=== PATIENT | female | born 1940 | race Caucasian/White ===

== ENCOUNTER 2022-06-23 23:46 | Emergency (ER) | payer MEDICARE, SELFPAY ==
[2022-06-23 23:53] VITALS: BP 179/85; PULSE 62; RESP 17; TEMP 36.5; O2SAT 98; BMI 37.1
--- NOTE | 2022-06-24 00:06 | DI.RAD.S_ITS ---
PROCEDURE: XR FOREARM LT 2V INDICATIONS: fall on thinners TECHNIQUE: 2 views of the forearm were acquired. COMPARISON: None. FINDINGS: Bones: No fractures or dislocations. No suspicious bony lesions. Soft tissues: No suspicious soft tissue calcifications or masses. IMPRESSION: 1. No fracture or dislocation. There Dictated by: Darius Contreras M.D. on 06/24/2022 at 1:32 Approved by: Darius Contreras M.D. on 06/24/2022 at 1:32
--- NOTE | 2022-06-24 00:06 | DI.CT.S_ITS ---
PROCEDURE: CT HEAD/BRAIN WO CON INDICATIONS: fall on thinners TECHNIQUE: Noncontrast 4.5 mm thick angled axial sections acquired from the foramen magnum to the vertex, with coronal and sagittal reformats. For radiation dose reduction, the following was used: automated exposure control, adjustment of mA and/or kV according to patient size. COMPARISON: None. FINDINGS: Image quality: Excellent. CSF spaces: Basal cisterns are patent. No extra-axial fluid collections. There is mild cerebral volume loss, with resultant ventricular and sulcal prominence. Brain: No intracranial hemorrhage, mass, or mass effect. There are subcortical, periventricular and deep white matter hypodensities consistent with mild chronic small vessel ischemic changes. The mendoza-white matter junction appears preserved. There is intracranial internal carotid artery atherosclerosis. Skull and face: Calvarium and visualized facial bones appear intact, without suspicious lesions. Sinuses: Visualized sinuses and mastoids are clear. IMPRESSION: 1. No acute intracranial abnormality. Dictated by: Darius Contreras M.D. on 06/24/2022 at 1:40 Approved by: Darius Contreras M.D. on 06/24/2022 at 1:40
--- NOTE | 2022-06-24 00:09 | DI.CT.S_ITS ---
PROCEDURE: CT CERVICAL SPINE WO CON INDICATIONS: hit head TECHNIQUE: Noncontrast 3 mm thick sections acquired from the skull base to the T4 level. Sagittal and coronal reformats were then constructed. For radiation dose reduction, the following was used: automated exposure control, adjustment of mA and/or kV according to patient size. COMPARISON: None. FINDINGS: Image quality: There is motion artifact limiting evaluation. Bones: No fractures or subluxation. There is multilevel degenerative disc disease and facet joint arthropathy. Visualized superior ribs are intact. Soft tissues: Prevertebral soft tissues are normal in thickness. No paravertebral hematomas. No apical pneumothoraces. IMPRESSION: 1. No acute fracture or subluxation. Dictated by: Darius Contreras M.D. on 06/24/2022 at 1:41 Approved by: Darius Contreras M.D. on 06/24/2022 at 1:42
--- NOTE | 2022-06-24 00:47 | ED.FALL ---
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 Patient states that she thinks she got tangled and fell out of bed. She hit the back of her head and states there is a very tiny abrasion that continues to ooze. It was still oozing after 12 hours so she presented to the emergency department for evaluation. She denies headache, she states she has some muscular neck pain but denies any midline neck pain. Patient states range of motion is normal. Denies any bony tenderness. No chest pain or shortness of breath. No GI or urinary symptoms. No new numbness, tingling or weakness. Patient states she is rheumatoid arthritis so she often has muscle aches and her back is often stiff. She feels mildly more sore but not significantly so. Patient states she would not have come if it were not for the bleeding on her scalp. She denies any loss of consciousness. No nausea or vomiting. Patient is currently visiting the area with her daughter and lives in [facility]. Related Data Allergies Allergy/AdvReac Type Severity Reaction Status Date / Time No Known Drug Allergies Allergy Verified 06/24/22 00:01 Review of Systems Review of Systems ROS Unobtainable: All systems reviewed & are unremarkable except as noted in HPI and below Patient History Social History Smoking Status: Never smoker Smoking Status: Never smoker alcohol intake frequency: 0-2 drinks per day Substance Use Type: does not use Exam Narrative Exam Narrative: GEN: Patient appears in mild distress. HEAD: Patient has a quarter-sized area of abrasion with pin-point area of with no laceration or obvious puncture, no raccoon/Garzon sign. NECK: Nontender, painless range of motion, trachea midline Negative Nexus criteria, there is no midline tenderness, distracting injury, altered mental status, neuro deficit, recent EtOH. EYES: PERRLA, EOMI ENT: External inspection normal, trachea is midline, TM's are normal no hemotypanum, Nares are clear, no septal hematoma, no dental or oral injury, airway is normal and with normal occlusion, No bony tenderness RESP: Chest is nontender and has symmetric movement, no ecchymosis, breath sounds are normal no crackles, wheezes or rales CVS: Heart sounds are normal, no murmur noted, No JVD. ABG/GI: Nontender, soft, normal bowel sounds, no distention, no organomegaly, pelvic rock is negative NEURO: Oriented AOx3, neuro is grossly intact, sensation and motor is normal all 4 extremities moving, cranial nerves II through XII are intact, GCS is 15 PSYCH: Normal mood and affect SKIN: Patient has contusion on the left forearm over the mid shaft ulna, no bony tenderness, full range of motion. 2+ radial pulse. Warm and dry, no crepitus and without decubitus BACK: No CVA tenderness, no vertebral tenderness, no step-off's, no crepitus EXT: Atraumatic, hips are nontender, normal range of motion of extremities with normal tendon exam, 2+ pulses in all four extremities. 5/5 muscle strength. Initial Vital Signs Initial Vital Signs: Vital Signs Temperature 97.7 F 06/23/22 23:53 Pulse Rate 62 06/23/22 23:53 Respiratory Rate 17 06/23/22 23:53 Blood Pressure 179/85 H 06/23/22 23:53 Pulse Oximetry 98 06/23/22 23:53 Oxygen Delivery Method 06/23/22 23:53 Course Orders Ordered: ED Orders 06/24/22 00:06 CT head/brain wo con Stat XR forearm LT 2V Stat 06/24/22 00:09 CT cervical spine wo con Stat Vital Signs Vital signs: Vital Signs - 8 hr 06/23/22 23:53 06/24/22 02:11 Temperature 97.7 F Pulse Rate 62 58 L Respiratory Rate 17 18 Blood Pressure 179/85 H 150/98 H Pulse Oximetry 98 94 Oxygen Delivery Method Room Air Room Air MDM - Fall Imaging Data CT scan - head: Radiologist's Impression: Close Cervical Spine CT (Signed) Darius Contreras - 06/24/[address] (Signed) Darius Contreras - 06/24/22 Forearm X-Ray (Signed) Darius Contreras - 06/24/[address] [address] [address] Scan Report Signed Patient: SHANE CARNES MR#: [id number] : 1940 Acct:[id number] Age/Sex: 82 / F Date of Service: 06/24/22 Loc: ED Accession Number: [id number] ?? Procedure: CT head/brain wo con Ordering Provider: Danya Meyer D.O. PROCEDURE:? CT HEAD/BRAIN WO CON ? INDICATIONS:? fall on thinners ? TECHNIQUE:? Noncontrast 4.5 mm thick angled axial sections acquired from the foramen magnum to the vertex, with coronal and sagittal reformats.? For radiation dose reduction, the following was used:? automated exposure control, adjustment of mA and/or kV according to patient size.? ? COMPARISON:? None. ? FINDINGS:? Image quality:? Excellent.? ? CSF spaces:? Basal cisterns are patent.? No extra-axial fluid collections.? There is mild cerebral volume loss, with resultant ventricular and sulcal prominence.? ? Brain:? No intracranial hemorrhage, mass, or mass effect.? There are subcortical, periventricular and deep white matter hypodensities consistent with mild chronic small vessel ischemic changes.? The mendoza-white matter junction appears preserved.? There is intracranial internal carotid artery atherosclerosis.? ? Skull and face:? Calvarium and visualized facial bones appear intact, without suspicious lesions.? ? Sinuses:? Visualized sinuses and mastoids are clear.? ? IMPRESSION:? ? 1. No acute intracranial abnormality.? ? Dictated by: Darius Contreras M.D. on 06/24/2022 at 1:40 ? ? Approved by: Darius Contreras M.D. on 06/24/2022 at 1:40?? CT - cervical spine: Radiologist's Impression: Close Cervical Spine CT (Signed) Darius Contreras - 06/24/[address] (Signed) Darius Contreras - 06/24/22 Forearm X-Ray (Signed) Darius Contreras - 06/24/22 Launch?[address] [address] [address] Scan Report Signed Patient: Shane Carnes MR#: [id number] : 1940 Acct:[id number] Age/Sex: 82 / F Date of Service: 06/24/22 Loc: ED Accession Number: [id number] ?? Procedure: CT cervical spine wo con Ordering Provider: Danya Meyer D.O. PROCEDURE:? CT CERVICAL SPINE WO CON ? INDICATIONS:? hit head ? TECHNIQUE:? Noncontrast 3 mm thick sections acquired from the skull base to the T4 level.? Sagittal and coronal reformats were then constructed.? For radiation dose reduction, the following was used:? automated exposure control, adjustment of mA and/or kV according to patient size.? ? COMPARISON:? None. ? FINDINGS:? Image quality:? There is motion artifact limiting evaluation.? ? Bones:? No fractures or subluxation.? There is multilevel degenerative disc disease and facet joint arthropathy.? Visualized superior ribs are intact.? ? Soft tissues:? Prevertebral soft tissues are normal in thickness.? No paravertebral hematomas.? No apical pneumothoraces.? ? ? IMPRESSION:? ? 1. No acute fracture or subluxation. ? ? ? Dictated by: Darius Contreras M.D. on 06/24/2022 at 1:41 ? ? Approved by: Darius Contreras M.D. on 06/24/2022 at 1:42?? Extremity x-ray #1: Radiologist's Impression: [place] [address] XRay Report Signed Patient: SHANE CARNES MR#: [id number] : 1940 Acct:[id number] Age/Sex: 82 / F Date of Service: 06/24/22 Loc: ED Accession Number: [id number] ?? Procedure: XR forearm LT 2V Ordering Provider: Danya Meyer D.O. PROCEDURE:? XR FOREARM LT 2V ? INDICATIONS:? fall on thinners ? TECHNIQUE:? 2 views of the forearm were acquired.? ? COMPARISON:? None. ? FINDINGS:? ? Bones:? No fractures or dislocations.? No suspicious bony lesions.? ? Soft tissues:? No suspicious soft tissue calcifications or masses.? ? ? IMPRESSION:? ? 1. No fracture or dislocation.? ? There ? ? Dictated by: Darius Contreras M.D. on 06/24/2022 at 1:32 ? ? Approved by: Darius Contreras M.D. on 06/24/2022 at 1:32?? [facility] Narrative Medical decision making narrative: This is a 82-year-old female with mechanical fall with abrasion that has been oozing but does not require stitches or martha been slowing over time. Patient's head CT, C-spine are negative, no other red flag changes. She has a contusion over her left forearm. Patient medically cleared and all questions answered. Discharge Plan Departure Patient Disposition: Home Clinical Impression: Abrasion of scalp, Head injury, Contusion of forearm, left Instructions: Closed Head Injury Activity Restrictions/Additional Instructions: Follow up if you are having persistent symptoms. Your imaging tonight is reassuring. You may continue your home medications as prescribed. Please return for persistent bleeding, severe headaches, altered mental status, new neck or back pain, persistent vomiting, new numbness, tingling or weakness or other new or concerning symptoms. Visit Report Forms: Patient Portal/API
[2022-06-24 02:11] VITALS: BP 150/98; PULSE 58; RESP 18; O2SAT 94
== END 2022-06-24 02:12 | disposition home or self-care (01) ==
PROVIDERS: Emergency Provider Emergency Medicine
DX: S00.01XA Abrasion of scalp, initial encounter (principal); S50.12XA Contusion of left forearm, initial encounter; W19.XXXA Unspecified fall, initial encounter
CPT/HCPCS: 70450; 72125; 73090; 99283